=== PATIENT | female | born 1975 | race African-American/Black ===

== ENCOUNTER 2017-05-09 15:01 | Emergency (ER) | payer OTHER, BC ==
--- NOTE | 2017-05-09 15:52 | ER Document Report ---
HPI - HPI Pain Level: 5 - REPRODUCTIVE Reproductive: DENIES: : - DERM Skin Color: Normal Past Medical History - Social History Family History: Reviewed & Not Pertinent Patient has suicidal ideation: No Patient has homicidal ideation: No - Past Medical History Cardiac Medical History: Reports: Hx Congestive Heart Failure, Hx Hypertension Renal/ Medical History: Denies: Hx Peritoneal Dialysis Past Surgical History: Reports: Hx Cardiac Catheterization Vertical Provider Document - INFECTION CONTROL TRAVEL OUTSIDE OF THE [place] IN LAST 30 DAYS: No - RESPIRATORY O2 Sat by Pulse Oximetry: 98 Course - Vital Signs Vital signs: Temp Pulse Resp BP Pulse Ox 98.9 F 94 20 164/92 H 98 05/09/17 15:07 05/09/17 15:07 05/09/17 15:07 05/09/17 15:07 05/09/17 15:07 Discharge - Discharge Clinical Impression: Skin lesion, Skin infection
--- NOTE | 2017-05-09 16:11 | ER Document Report ---
ED Medical Screen (RME) - General Chief Complaint: Arm Pain Stated Complaint: RIGHT ARM PAIN Time Seen by Provider: 05/09/17 15:40 TRAVEL OUTSIDE OF THE [place] IN LAST 30 DAYS: No - HPI Notes: 05/09/17 16:08 Is a 41-year-old female presents the ED complaining of severe right shoulder and arm pain 1 day without any known injury. Patient states that she began feeling discomfort while she was at work yesterday but worsened overnight. Patient states that she is unable to move that arm without extreme pain. Patient states that she has shooting pains from the shoulder down to the forearm without any neck pain. 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 She has tried [id number]-[id number] meds without any relief. Denies any fever, numbness/tingling, headache, chest pain, shortness of breath. - Related Data Allergies/Adverse Reactions: No Known Allergies Allergy (Verified 05/09/17 15:07) Past Medical History - Past Medical History Cardiac Medical History: Reports: Hx Congestive Heart Failure, Hx Hypertension Renal/ Medical History: Denies: Hx Peritoneal Dialysis Past Surgical History: Reports: Hx Cardiac Catheterization Physical Exam - Vital signs Vitals: Temp Pulse Resp BP Pulse Ox 98.9 F 94 20 164/92 H 98 05/09/17 15:05/09/17 15:05/09/17 15:05/09/17 15:05/09/17 15:07 Notes: Rt shoulder/arm: + severe tenderness to light palpation (put the patient into tears and crying). Unable to perform through ROM due to patient resistance. + tenderness to the rt trap mm, shoulder, arm, and forearm. Pulse 2+ b/l. Sensation intact distal. Cap refill <3sec. No cervical tenderness. Vitals are stable. Course - Vital Signs Vital signs: Temp Pulse Resp BP Pulse Ox 98.9 F 94 20 164/92 H 98 05/09/17 15:05/09/17 15:05/09/17 15:05/09/17 15:05/09/17 15:07 Doctor's Discharge - Discharge Clinical Impression: Skin lesion, Skin infection
[2017-05-09] MEDS ORDERED: OXYCODONE HCL IR 5 MG TABLET PO ONE (16:12)
--- NOTE | 2017-05-09 16:22 | ER Document Report ---
HPI - HPI Pain Level: 5 Notes: Pt is a 41-year-old female presents the ED complaining of severe right shoulder and arm pain 1 day without any known injury. Patient states that she began feeling discomfort while she was at work yesterday but worsened overnight. Patient states that she is unable to move that arm without extreme pain. Patient states that she has shooting pains from the shoulder down to the forearm without any neck pain. 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 She has tried yico-igs-qasqrov meds/cream without any relief. Denies any fever, numbness/tingling, headache, chest pain, shortness of breath. No history of sickle cell or exposure to any cats. - ROS Notes: REVIEW OF SYSTEMS: CONSTITUTIONAL : Denies fever, chills, or sweats. Denies recent illness. EENT: Denies eye, ear, throat, or mouth pain or symptoms. Denies nasal or sinus congestion or discharge. Denies throat, tongue, or mouth swelling or difficulty swallowing. CARDIOVASCULAR: Denies chest pain. Denies palpitations or racing or irregular heart beat. Denies ankle edema. RESPIRATORY: Denies cough, cold, or chest congestion. Denies shortness of breath, difficulty breathing, or wheezing. GASTROINTESTINAL: Denies abdominal pain or distention. Denies nausea, vomiting , or diarrhea. Denies blood in vomitus, stools, or per rectum. Denies black, tarry stools. Denies constipation. GENITOURINARY: Denies difficulty urinating, painful urination, burning, frequency, blood in urine, or discharge. MUSCULOSKELETAL: see hpi SKIN: Denies rash, lesions or sores. NEUROLOGICAL: Denies dizziness or lightheadedness. Denies headache. Denies problems with gait or speech. Denies sensory loss, numbness, or tingling. ALL OTHER SYSTEMS REVIEWED AND NEGATIVE. Dictation was performed using [employer] voice recognition software - REPRODUCTIVE Reproductive: DENIES: : - DERM Skin Color: Normal Past Medical History - Social History Smoking Status: Unknown if Ever Smoked Family History: Reviewed & Not Pertinent Patient has suicidal ideation: No Patient has homicidal ideation: No - Past Medical History Cardiac Medical History: Reports: Hx Congestive Heart Failure, Hx Hypertension Renal/ Medical History: Denies: Hx Peritoneal Dialysis Past Surgical History: Reports: Hx Cardiac Catheterization Vertical Provider Document - CONSTITUTIONAL Notes: PHYSICAL EXAMINATION: GENERAL: Well-appearing, well-nourished and in no acute distress. NECK: Normal range of motion, supple without lymphadenopathy. No rigidity/ tenderness. + tenderness to the rt trapezius mm. LUNGS: Breath sounds clear to auscultation bilaterally and equal. No wheezes rales or rhonchi. HEART: Regular rate and rhythm without murmurs, rubs, gallops. Musculoskeletal: LROM to passive/active of the RUE. + tenderness to light palpation and attempt at passive ROM. + tenderness from rt trap mm to the rt forearm. 2+ pulse. sensation intact. No erythema, excessive warmth, deformity , or ecchymosis noted. Extremities: No cyanosis, clubbing, or edema b/l. Peripheral pulses 2+. Capillary refill less than 3 seconds. NEUROLOGICAL: see MSK PSYCH: Normal mood, normal affect. SKIN: Warm, Dry, normal turgor, no rashes or lesions noted. - INFECTION CONTROL TRAVEL OUTSIDE OF THE [place] IN LAST 30 DAYS: No - RESPIRATORY O2 Sat by Pulse Oximetry: 98 Course - Re-evaluation Re-evalutation: 05/09/17 20:10 Dr. [place] also evaluated the rt shoulder: Patient is an afebrile, well-hydrated, 41-year-old female presents to the ED with right shoulder/arm pain suspect possible rotator cuff involvement; although physical exam incomplete due to patient discomfort at this time. X- ray did not show any acute fracture dislocation. Oxycodone was given today which did help offset some of her discomfort. Sling was provided today as well. Low suspicion for any septic joint, systemic infection, or any neurological deficit based on workup today. Patient to be discharged in stable condition. I will send her home with oxycodone, steroid taper, Voltaren gel. Recheck with her PCM to 3 days for further evaluation. Consider consult with orthopedics with ongoing worsening symptoms. Return to the ED with any worsening/concerning symptoms otherwise as reviewed. Patient in agreement. - Vital Signs Vital signs: Temp Pulse Resp BP Pulse Ox 98.9 F 94 20 164/92 H 98 05/09/17 15:05/09/17 15:05/09/17 15:05/09/17 15:05/09/17 15:07 Discharge - Discharge Clinical Impression: Right shoulder pain Qualifiers: Chronicity: acute Qualified Code(s): M25.511 - Pain in right shoulder Condition: Stable Disposition: HOME, SELF-CARE Additional Instructions: Rest, Ice, Compression, Elevation Use sling as directed Tylenol/ibuprofen as needed Take meds as directed Light stretches daily Strength exercises as able Moist heat and massage may help Monitor sugars closely while on prednisone F/u with your PCP in 2-3 days for a recheck Consider consult(s) with Orthopedics for ongoing/worsening symptoms Return to the ED with any worsening pain, swelling, pale limbs, numbness/ tingling, muscle weakness, development of fever, or other concerning symptoms. Prescriptions: Diclofenac Sodium [Voltaren] 4 gm TP QID PRN #100 gel..gm. PRN Reason: Oxycodone HCl [Oxycodone HCl 10 MG Tablet] 1 - 2 tab PO Q6H PRN #15 tablet PRN Reason: PAIN Prednisone [Deltasone 10 mg Tablet] 10 mg PO ASDIR PRN #21 tablet PRN Reason: Referrals: NICK SALMON MD [Primary Care Provider] - Follow up as needed [facility] [Provider Group] - Follow up as needed
--- NOTE | 2017-05-09 16:54 | RADIOLOGY REPORT (SQ) ---
EXAM DESCRIPTION: SHOULDER RIGHT 2 OR MORE VIEWS COMPLETED DATE/TIME: 05/09/2017 4:41 pm REASON FOR STUDY: Rt shoulder pain COMPARISON: None. NUMBER OF VIEWS: Three views. TECHNIQUE: Internal rotation, external rotation, and Y view images acquired of the right shoulder. LIMITATIONS: None. FINDINGS: MINERALIZATION: Normal. BONES: No acute fracture or dislocation. No worrisome bone lesions. JOINTS: No dislocation. Mild degenerative changes involving the AC joint. VISUALIZED LUNGS AND RIBS: No pneumothorax. No rib fracture. SOFT TISSUES: Soft tissue calcification adjacent to the humeral head consistent with calcific tendini tis or calcific bursitis. OTHER: No other significant finding. IMPRESSION: 1. Soft tissue calcification adjacent to the humeral head consistent with calcific tend initis or calcific bursitis. 2. Mild degenerative changes involving the AC joint. TECHNICAL DOCUMENTATION: JOB ID: [id number] [employer]- All Rights Reserved
[2017-05-09 17:39] VITALS: BP 118/83
== END 2017-05-09 17:35 | disposition home or self-care (01) ==
LOC: ER 15:01
DX: M25.511 Pain in right shoulder (principal); M79.601 Pain in right arm; I50.9 Heart failure, unspecified; I11.0 Hypertensive heart disease with heart failure
CPT/HCPCS: 99283

== ENCOUNTER 2017-09-17 09:55 | Emergency (ER) | payer BC ==
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
--- NOTE | 2017-09-17 10:40 | RADIOLOGY REPORT (SQ) ---
EXAM DESCRIPTION: HAND LEFT 3 VIEWS; WRIST LEFT 3 VIEWS COMPLETED DATE/TIME: 09/17/2017 10:27 am REASON FOR STUDY: left hand/wrist pain s/p injury, + swelling COMPARISON: None. FINDINGS: Four views of the left wrist: Scapholunate interval widening. Carpal alignment otherwise looks relatively anatomic. No fracture detected. Three views left hand: Fingers are slightly flexed on the PA view which mildly limits. Normal bone density. No fracture or foreign body, subluxation or dislocation. IMPRESSION: 1. Scapholunate interval widening on wrist radiographs may reflect ligament injury. Car pal alignment otherwise looks intact. 2. No hand fracture, subluxation or dislocation or foreign bod y evident. TECHNICAL DOCUMENTATION: JOB ID: [id number]
[2017-09-17 11:38] VITALS: BP 136/82
== END 2017-09-17 11:38 | disposition home or self-care (01) ==
LOC: ER 09:55
DX: S63.502A Unspecified sprain of left wrist, initial encounter (principal); M79.642 Pain in left hand; M25.532 Pain in left wrist; W22.09XA Striking against other stationary object, initial encounter; Y93.89 Activity, other specified; Y92.818 Other transport vehicle as the place of occurrence of the external cause; M79.89 Other specified soft tissue disorders; I10 Essential (primary) hypertension
CPT/HCPCS: 99283

== ENCOUNTER 2017-09-19 14:06 | Emergency (ER) | payer BC ==
--- NOTE | 2017-09-19 14:27 | RADIOLOGY REPORT (SQ) ---
EXAM DESCRIPTION: CT HEAD WITHOUT COMPLETED DATE/TIME: 09/19/2017 2:19 pm REASON FOR STUDY: STROKE ALERT COMPARISON: None. TECHNIQUE: Axial images acquired through the brain without intravenous contrast. Images reviewed wi th bone, brain and subdural windows. Images stored on PACS. All CT scanners at this facility use dose modulation, iterative reconstruction, and/or weight based d osing when appropriate to reduce radiation dose to as low as reasonably achievable (ALARA). [facility]: Dose Right [facility]: CareDose [facility]: Dose Right [facility]: Teradose 4D [facility]: [employer] Mode RADIATION DOSE: mGy. LIMITATIONS: None. FINDINGS: VENTRICLES: Normal size and contour. CEREBRUM: No masses. No hemorrhage. No midline shift. No evidence for acute infarction. Normal gra y/white matter differentiation. No areas of low density in the white matter. CEREBELLUM: No masses. No hemorrhage. No alteration of density. No evidence for acute infarction. EXTRAAXIAL SPACES: No fluid collections. No masses. ORBITS AND GLOBE: No intra- or extraconal masses. Normal contour of globe without masses. CALVARIUM: No fracture. PARANASAL SINUSES: No fluid or mucosal thickening. SOFT TISSUES: No mass or hematoma. OTHER: No other significant finding. IMPRESSION: NORMAL BRAIN CT WITHOUT CONTRAST. EVIDENCE OF ACUTE STROKE: NO. COMMENT: Pertinent positive or negative findings of the imaging study reported as a CRITICAL EXAM t o ER PROVIDER at14:20 on 09/19/2017. Category of Critical Exam: Stroke alert. Quality ID # [id number]: Final reports with documentation of one or more dose reduction techniques (e.g., Au tomated exposure control, adjustment of the mA and/or kV according to patient size, use of iterative reconstruction technique) TECHNICAL DOCUMENTATION: JOB ID: [id number]- All Rights Reserved
[2017-09-19 14:50] LABS: ABSOLUTE EOSINOPHILS # (AUTO) 0.5 10^3/uL (0.0-0.6); ABSOLUTE LYMPHOCYTES (AUTO) 2.9 10^3/uL (0.5-4.7); ABSOLUTE MONOCYTES (AUTO) 0.9 10^3/uL (0.1-1.4); ABSOLUTE NEUT (AUTO) 7.6 10^3/uL (1.7-8.2); BASOPHILS % (AUTO) 0.1 % (0-2); EOSINOPHILS % (AUTO) 4.3 % (0-6); LYMPHOCYTES % (AUTO) 24.3 % (13-45); MEAN CORPUSCULAR HEMOGLOBIN 27.8 pg (27.0-33.4); MEAN CORPUSCULAR HGB CONC 33.3 g/dL (32.0-36.0); MEAN CORPUSCULAR VOLUME 84 fl (80-97); MONOCYTES % (AUTO) 7.6 % (3-13); RED BLOOD COUNT 4.67 10^6/uL (3.72-5.28); SEGMENTED NEUTROPHILS % (AUTO) 63.7 % (42-78); WHITE BLOOD COUNT 11.9 10^3/uL (4.0-10.5)
[2017-09-19] MEDS ORDERED: ASPIRIN 81 MG TABLET, CHEWABLE PO ONE (14:52)
[2017-09-19 14:55] LABS: PARTIAL THROMBOPLASTIN TIME 27.3 SEC (23.5-35.8); PROTHROMBIN TIME 12.8 SEC (11.4-15.4)
--- NOTE | 2017-09-19 15:05 | RADIOLOGY REPORT (SQ) ---
EXAM DESCRIPTION: CHEST SINGLE VIEW COMPLETED DATE/TIME: 09/19/2017 2:54 pm REASON FOR STUDY: AMS COMPARISON: 10/25/2016 EXAM PARAMETERS: NUMBER OF VIEWS: One view. TECHNIQUE: Single frontal radiographic view of the chest acquired. RADIATION DOSE: NA LIMITATIONS: None. FINDINGS: LUNGS AND PLEURA: No opacities, masses or pneumothorax. No pleural effusion. Low lung vol umes. MEDIASTINUM AND HILAR STRUCTURES: No masses. Contour normal. HEART AND VASCULAR STRUCTURES: Enlarged cardiac silhouette. BONES: No acute findings. HARDWARE: None in the chest. OTHER: No other significant finding. IMPRESSION: Cardiac enlargement with no failure. Cardiac enlargement is accentuated by low lung vol umes. TECHNICAL DOCUMENTATION: JOB ID: [id number] [employer]- All Rights Reserved
[2017-09-19 15:14] LABS: ALANINE AMINOTRANSFERASE 24 U/L (9-52); ALBUMIN 3.4 g/dL (3.5-5.0); ALKALINE PHOSPHATASE 78 U/L (38-126); ANION GAP 9 (5-19); ASPARTATE AMINO TRANSFERASE 17 U/L (14-36); BILIRUBIN,DIRECT 0.3 mg/dL (0.0-0.4); BILIRUBIN,TOTAL 0.3 mg/dL (0.2-1.3); BLOOD UREA NITROGEN 15 mg/dL (7-20); CALCIUM 9.5 mg/dL (8.4-10.2); CARBON DIOXIDE 27 mmol/L (22-30); CHLORIDE 104 mmol/L (98-107); CREATINE KINASE 160 U/L (30-135); CREATININE RESULT 1.14 mg/dL (0.52-1.25); GLUCOSE 96 mg/dL (75-110); LIPASE 282.9 U/L (23-300); POTASSIUM 3.7 mmol/L (3.6-5.0); SODIUM 139.7 mmol/L (137-145); TOTAL PROTEIN 6.7 g/dL (6.3-8.2)
[2017-09-19 15:15] LABS: ALCOHOL < 10 mg/dL (NONE DETECTED)
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
[2017-09-19 15:32] LABS: TROPONIN I < 0.012 ng/mL
[2017-09-19 16:15] LABS: APPEARANCE,URINE SLIGHTLY-CLOUDY; BILIRUBIN,URINE NEGATIVE (NEGATIVE); GLUCOSE, URINE NEGATIVE (NEGATIVE); KETONES,URINE NEGATIVE (NEGATIVE); LEUKOCYTE ESTERASE,URINE NEGATIVE (NEGATIVE); NITRITE,URINE NEGATIVE (NEGATIVE); PROTEIN,URINE NEGATIVE (NEGATIVE); URINE SPECIFIC GRAVITY 1.008; UROBILINOGEN,URINE NEGATIVE mg/dL (<2.0)
[2017-09-19 16:30] LABS: URINE BARBITURATES SCREEN NEGATIVE; URINE METHADONE SCREEN NEGATIVE; URINE OPIATES LOW NEGATIVE; URINE PHENCYCLIDINE SCREEN NEGATIVE
[2017-09-19] MEDS ORDERED: NAPROXEN 250 MG TABLET PO ONE (18:26)
[2017-09-19 19:09] VITALS: BP 148/84
--- NOTE | 2017-09-20 09:33 | EKG REPORT ---
SEVERITY:- ABNORMAL ECG - SINUS RHYTHM FIRST DEGREE AV BLOCK ABNRM R PROG, CONSIDER ASMI OR LEAD PLACEMENT : Confirmed by: Vera Yu 20-Sep-2017 09:33:18
== END 2017-09-19 19:17 | disposition home or self-care (01) ==
LOC: ER 14:06
DX: E11.649 Type 2 diabetes mellitus with hypoglycemia without coma (principal); Z79.84 Long term (current) use of oral hypoglycemic drugs; R47.81 Slurred speech; I10 Essential (primary) hypertension; S20.219A Contusion of unspecified front wall of thorax, initial encounter; R07.89 Other chest pain; V49.9XXA Car occupant (driver) (passenger) injured in unspecified traffic accident, initial encounter; I51.7 Cardiomegaly
CPT/HCPCS: 36415; 70450; 71010; 80053; 80307; 81001; 82550; 82962; 83690; 83880; 84484; 84703; 85025; 85610; 85730; 93005; 93010; 99285

== ENCOUNTER 2018-02-05 11:36 | Emergency (ER) | payer BC ==
[2018-02-05] MEDS ORDERED: OXYCODONE-ACETAMINOPHEN 5-325 MG TABLET PO ONE ×2 (12:09→17:47)
--- NOTE | 2018-02-05 12:15 | ER Document Report ---
ED Medical Screen (RME) - General Chief Complaint: Leg Pain Stated Complaint: LEG PAIN Time Seen by Provider: 02/05/18 12:03 Notes: 42-year-old female patient had a right lateral leg abscess incision and drainage at [facility] on 01/30/2018. She states for the first 2 days it was much better. She was packing the abscess cavity as instructed and taking clindamycin. She had a culture done which grew a non-MRSA staph aureus sensitive to every antibiotic that it was tested against. Now she complains of a 2 day history of pain getting progressively worse with some swelling. She was taking Tylenol, yesterday took 2 or 3 doses of Motrin 800 mg and took 1 dose this morning without any relief. She has an abscess cavity where the I&D was done, it is not draining. It is very tender and swelling in the tissues surrounding this abscess cavity. I have greeted and performed a rapid initial assessment of this patient. A comprehensive ED assessment and evaluation of the patient, analysis of test results and completion of the medical decision making process will be conducted by additional ED providers. TRAVEL OUTSIDE OF THE [place] IN LAST 30 DAYS: No - Related Data Allergies/Adverse Reactions: No Known Allergies Allergy (Verified 09/19/17 17:22) Past Medical History - Social History Frequency of alcohol use: None Drug Abuse: None - Past Medical History Cardiac Medical History: Reports: Hx Congestive Heart Failure, Hx Heart Attack, Hx Hypertension Endocrine Medical History: Reports: Hx Diabetes Mellitus Type 2 Renal/ Medical History: Denies: Hx Peritoneal Dialysis Past Surgical History: Reports: Hx Cardiac Catheterization Physical Exam - Vital signs Vitals: Temp Pulse Resp BP Pulse Ox 98.1 F 81 20 129/80 H 97 02/05/18 11:57 02/05/18 11:57 02/05/18 11:57 02/05/18 11:57 02/05/18 11:57 Course - Vital Signs Vital signs: Temp Pulse Resp BP Pulse Ox 98.1 F 81 20 129/80 H 97 02/05/18 11:57 02/05/18 11:57 02/05/18 11:57 02/05/18 11:57 02/05/18 11:57
[2018-02-05 13:02] LABS: ABSOLUTE EOSINOPHILS # (AUTO) 0.6 10^3/uL (0.0-0.6); ABSOLUTE LYMPHOCYTES (AUTO) 3.2 10^3/uL (0.5-4.7); ABSOLUTE MONOCYTES (AUTO) 0.9 10^3/uL (0.1-1.4); BASOPHILS % (AUTO) 0.1 % (0-2); EOSINOPHILS % (AUTO) 4.8 % (0-6); HEMATOCRIT 42.2 % (36.0-47.0); LYMPHOCYTES % (AUTO) 25.1 % (13-45); MEAN CORPUSCULAR HEMOGLOBIN 27.4 pg (27.0-33.4); MEAN CORPUSCULAR HGB CONC 33.1 g/dL (32.0-36.0); MEAN CORPUSCULAR VOLUME 83 fl (80-97); MONOCYTES % (AUTO) 6.8 % (3-13); PLATELET COUNT 404 10^3/uL (150-450); RED CELL DISTRIBUTION WIDTH 14.6 % (11.5-14.0); SEGMENTED NEUTROPHILS % (AUTO) 63.2 % (42-78); TOTAL CELLS COUNTED % (AUTO) 100 %; WHITE BLOOD COUNT 12.7 10^3/uL (4.0-10.5)
[2018-02-05 13:16] LABS: ALANINE AMINOTRANSFERASE 32 U/L (9-52); ALKALINE PHOSPHATASE 63 U/L (38-126); ANION GAP 10 (5-19); ASPARTATE AMINO TRANSFERASE 28 U/L (14-36); BILIRUBIN,DIRECT 0.2 mg/dL (0.0-0.4); BILIRUBIN,TOTAL 0.2 mg/dL (0.2-1.3); BLOOD UREA NITROGEN 17 mg/dL (7-20); CALCIUM 10.3 mg/dL (8.4-10.2); CARBON DIOXIDE 32 mmol/L (22-30); CHLORIDE 96 mmol/L (98-107); GLUCOSE 78 mg/dL (75-110); POTASSIUM 3.6 mmol/L (3.6-5.0); TOTAL PROTEIN 7.2 g/dL (6.3-8.2)
--- NOTE | 2018-02-05 13:38 | RADIOLOGY REPORT (SQ) ---
EXAM DESCRIPTION: U/S EXTREMITY NONVASCULAR LTD COMPLETED DATE/TIME: 02/05/2018 1:21 pm REASON FOR STUDY: R leg, pain swelling after abscess I D COMPARISON: None. TECHNIQUE: Dynamic and static grayscale images acquired of the localized site of clinical concern an d recorded on PACS. Additional selected color Doppler and spectral images recorded. SITE OF CONCERN: Right calf LIMITATIONS: None. FINDINGS: SKIN AND SUBCUTANEOUS TISSUES: Extensive edema. No fluid collection. No abscess. DEEP SOFT TISSUES/MUSCLES: Edema without abscess. VASCULAR: No increased or decreased vascularity. No occlusions. OTHER: No other significant finding. IMPRESSION: Extensive superficial and deep edema without evidence for fluid collection or abscess. TECHNICAL DOCUMENTATION: JOB ID: [id number] [employer]- All Rights Reserved Reading location - IP/workstation name: [email or web address]
[2018-02-05] MEDS ORDERED: VANCOMYCIN HCL INJ 1000 MG VIAL IV ONE (14:12)
[2018-02-05] MEDS ORDERED: FENTANYL CITRATE INJ/PF 100 MCG/2 ML AMPUL IV ONE (14:15)
[2018-02-05] MEDS ORDERED: MIDAZOLAM 2 MG/2 ML INJ IV ONE (14:15)
--- NOTE | 2018-02-05 15:02 | ER Document Report ---
ED General - General Chief Complaint: Leg Pain Stated Complaint: LEG PAIN Time Seen by Provider: 02/05/18 12:03 Mode of Arrival: Ambulatory Information source: Patient Notes: 42-year-old female presents with complaints of right calf swelling pain of 2 3 week duration. Patient notes symptoms have gotten better after it was incised and drained approximately 6 days ago and was feeling well for about 3 days over the past 3 days now symptoms have since worsened TRAVEL OUTSIDE OF THE [place] IN LAST 30 DAYS: No - HPI Onset: Other - 2-3 days ago Onset/Duration: Persistent - Related Data Allergies/Adverse Reactions: No Known Allergies Allergy (Verified 09/19/17 17:22) Past Medical History - Social History Smoking Status: Never Smoker Cigarette use (# per day): No Chew tobacco use (# tins/day): No Smoking Education Provided: No Frequency of alcohol use: None Drug Abuse: None Family History: Reviewed & Not Pertinent Patient has suicidal ideation: No Patient has homicidal ideation: No - Past Medical History Cardiac Medical History: Reports: Hx Congestive Heart Failure, Hx Heart Attack, Hx Hypertension Endocrine Medical History: Reports: Hx Diabetes Mellitus Type 2 Renal/ Medical History: Denies: Hx Peritoneal Dialysis Past Surgical History: Reports: Hx Cardiac Catheterization Review of Systems - Review of Systems Notes: REVIEW OF SYSTEMS: CONSTITUTIONAL : Denies fever, chills, or sweats. Denies recent illness. EENT: Denies eye, ear, throat, or mouth pain or symptoms. Denies nasal or sinus congestion or discharge. Denies throat, tongue, or mouth swelling or difficulty swallowing. CARDIOVASCULAR: Denies chest pain. Denies palpitations or racing or irregular heart beat. Denies ankle edema. RESPIRATORY: Denies cough, cold, or chest congestion. Denies shortness of breath, difficulty breathing, or wheezing. GASTROINTESTINAL: Denies abdominal pain or distention. Denies nausea, vomiting , or diarrhea. Denies blood in vomitus, stools, or per rectum. Denies black, tarry stools. Denies constipation. GENITOURINARY: Denies difficulty urinating, painful urination, burning, frequency, blood in urine, or discharge. FEMALE GENITOURINARY: Denies vaginal bleeding, heavy or abnormal periods, irregular periods. Denies vaginal discharge or odor. MUSCULOSKELETAL: Denies back or neck pain or stiffness. D right calf swelling SKIN: Admits to right calf pain HEMATOLOGIC : Denies easy bruising or bleeding. LYMPHATIC: Denies swollen, enlarged glands. NEUROLOGICAL: Denies confusion or altered mental status. Denies passing out or loss of consciousness. Denies dizziness or lightheadedness. Denies headache. Denies weakness or paralysis or loss of use of either side. Denies problems with gait or speech. Denies sensory loss, numbness, or tingling. Denies seizures. PSYCHIATRIC: Denies anxiety or stress. Denies depression, suicidal ideation, or homicidal ideation. ALL OTHER SYSTEMS REVIEWED AND NEGATIVE. PHYSICAL EXAMINATION: GENERAL: Well-appearing, well-nourished and in no acute distress. HEAD: Atraumatic, normocephalic. EYES: Pupils equal round and reactive to light, extraocular movements intact, conjunctiva are normal. ENT: Nares patent, oropharynx clear without exudates. Moist mucous membranes. NECK: Normal range of motion, supple without lymphadenopathy LUNGS: Breath sounds clear to auscultation bilaterally and equal. No wheezes rales or rhonchi. HEART: Regular rate and rhythm without murmurs ABDOMEN: Soft, nontender, nondistended abdomen. No guarding, no rebound. No masses appreciated. Female : deferred Musculoskeletal: Significant tenderness of the right calf, there is surgical debridement noted of the calf no erythema NEUROLOGICAL: Cranial nerves grossly intact. Normal speech, normal gait. Normal sensory, motor exams PSYCH: Normal mood, normal affect. SKIN: Warm, Dry, normal turgor, no rashes or lesions noted. Dictation was performed using [employer] voice recognition software Physical Exam - Vital signs Vitals: Temp Pulse Resp BP Pulse Ox 98.1 F 81 20 129/80 H 97 02/05/18 11:57 02/05/18 11:57 02/05/18 11:57 02/05/18 11:57 02/05/18 11:57 Course - Re-evaluation Re-evalutation: Patient's ultrasound is most consistent with edema with possible infectious process, Dr. Humphries would like to I&D the wound 02/05/18 15:01 Dr humphries offers admission but pt has to go to another hospital in the morning for her son. denies any other concers, Dr humphries will cut at bedside 02/05/18 16:23 Patient tolerated procedure well will be continued on her home antibiotics and given follow-up with wound care clinic After performing a Medical Screening Examination, I estimate there is LOW risk for OPEN FRACTURE, COMPARTMENT SYNDROME, TENDON RUPTURE, ACUTE NEUROVASCULAR INJURY, or RETAINED FOREIGN BODY, thus I consider the discharge disposition reasonable. Also, there is no evidence or peritonitis, sepsis, or toxicity. I have reevaluated this patient multiple times and no significant life threatening changes are noted. The patient and I have discussed the diagnosis and risks, and we agree with discharging home with close follow-up with the understanding that symptoms and presentations can change. We also discussed returning to the Emergency Department immediately if new or worsening symptoms occur. We have discussed the symptoms which are most concerning (e.g., changing or worsening pain, fever, numbness, weakness, cool or painful digits) that necessitate immediate return. - Vital Signs Vital signs: Temp Pulse Resp BP Pulse Ox 98.1 F 75 19 104/62 100 02/05/18 11:57 02/05/18 15:40 02/05/18 15:51 02/05/18 15:51 02/05/18 15:51 - Laboratory Result Diagrams: 02/05/18 12:18 02/05/18 12:18 Laboratory results interpreted by me: 02/05/18 02/05/18 12:18 12:18 WBC 12.7 H RDW 14.6 H Chloride 96 L Carbon Dioxide 32 H Calcium 10.3 H - Diagnostic Test Radiology reviewed: Image reviewed - Significant edema noted, Reports reviewed Discharge - Discharge Clinical Impression: Leg wound, right Qualifiers: Encounter type: initial encounter Qualified Code(s): S81.801A - Unspecified open wound, right lower leg, initial encounter Condition: Stable Disposition: HOME, SELF-CARE Additional Instructions: Please follow-up with wound care clinic for further evaluation care return immediately if there are any other concerns I wanted to admit you today but I understand you have other family issues return immediately for any other concerns Referrals: NICK SALMON MD [Primary Care Provider] - Follow up as needed SURGICALIST,SURGICAL MD [ACTIVE STAFF] - Follow up as needed Wound Care [Provider Group] - Follow up as needed
[2018-02-05] MEDS ORDERED: LIDOCAINE 1% INJ-PF (10 MG/ML) 30 ML SDV ONE (15:23)
--- NOTE | 2018-02-05 18:19 | HISTORY AND PHYSICAL E ---
History and Physical NAME: KESHA STROUD : 1975 AGE: 42Y ADMITTED: 02/05/2018 ROOM: PREOPERATIVE DIAGNOSES: 1. History of right leg debridement. 2. Cellulitis, right lower extremity. POSTOPERATIVE DIAGNOSES: 1. History of right leg debridement. 2. Cellulitis, right lower extremity. 3. Nonviable tissue, right lower extremity wound. PROCEDURE: Excisional skin, subcutaneous tissue, and superficial fascia right lower extremity using knife blade, approximately 3 x 2 x 1 cm tissue removed. SURGEON: Lamont Lowe MD ANESTHESIA: Conscious sedation and local anesthesia. COMPLICATIONS: None. ESTIMATED BLOOD LOSS: Minimal. DRAINS: None. SUMMARY OF PROCEDURE: The patient's right lower extremity was exposed with the patient in the left lateral decubitus position. Surgical plan and surgical timeout were discussed. The patient underwent conscious sedation per protocol in the emergency department with appropriate monitoring devices attached to the patient and adequate nursing supervision. The right lower extremity lateral transversely oriented wound was approximately 1.5 x 3 cm in diameter. It was prepped and draped in a sterile fashion. Skin and subcutaneous tissue was anesthetized with 1% lidocaine plain. A larger ellipse of skin and subcutaneous tissue was made with a number 10 blade in a transverse fashion removing the perimeter of the previous wound. Underlying pockets of mild edema were broken up with index finger both proximally and distally along lateral calf. Small fragments of residual suture likely from previous closure were removed. The wound was irrigated with saline, lidocaine, and then packed with a small piece of gauze. The wound covered with 4 x 4's, Antonio wrap, and Kerlix. The patient tolerated the procedure well. RECOMMENDATIONS: 1. The patient needs intense re-education on leg elevation. 2. The patient to start wet-to-dry dressings as she had prior today's visit with a small portion of gauze. 3. Await wound culture results; continue empiric IV and p.o. antibiotic therapy with *------* gram-positive coverage. 4. The patient can return to [facility] for followup of wound management. DICTATING PHYSICIAN: LAMONT LOWE M.D. [id number] PHY#: [id number] ID: [id number] JOB#: [id number] ACCT: [id number] cc:NICK SALMON M.D. >
[2018-02-05 18:35] VITALS: BP 106/68
== END 2018-02-05 19:05 | disposition home or self-care (01) ==
LOC: ER 11:36
PROC: 0J9N0ZZ Drainage of Right Lower Leg Subcutaneous Tissue and Fascia, Open Approach (ICD-10-PCS; principal; 2018-02-05)
DX: L03.115 Cellulitis of right lower limb (principal); M79.604 Pain in right leg; I50.9 Heart failure, unspecified; I10 Essential (primary) hypertension; E11.9 Type 2 diabetes mellitus without complications; I25.2 Old myocardial infarction
CPT/HCPCS: 99284; 99152; 96365; 36415; 87070; 87205; 85025; 87077; 80053; 87186; 76882; 10060; J2250; J3010; J3490; J3370

== ENCOUNTER 2018-08-29 14:42 | Emergency (ER) | payer BC ==
[2018-08-29] MEDS ORDERED: ASPIRIN 81 MG TABLET, CHEWABLE PO ONE (15:21)
[2018-08-29] MEDS ORDERED: HYDROMORPHONE HCL INJ/PF 2 MG/ML AMPULE IV ONE (15:48)
[2018-08-29] MEDS ORDERED: ONDANSETRON 4 MG TAB.RAPDIS PO ONE (15:48)
--- NOTE | 2018-08-29 15:51 | RADIOLOGY REPORT (SQ) ---
EXAM DESCRIPTION: CHEST SINGLE VIEW COMPLETED DATE/TIME: 08/29/2018 3:43 pm REASON FOR STUDY: chest pain, sob COMPARISON: 10/25/2016. EXAM PARAMETERS: NUMBER OF VIEWS: One view. TECHNIQUE: Single frontal radiographic view of the chest acquired. RADIATION DOSE: NA LIMITATIONS: None. FINDINGS: LUNGS AND PLEURA: No opacities, masses or pneumothorax. No pleural effusion. MEDIASTINUM AND HILAR STRUCTURES: No masses. Contour normal. HEART AND VASCULAR STRUCTURES: Heart normal in size. Normal vasculature. BONES: No acute findings. HARDWARE: None in the chest. OTHER: No other significant finding. IMPRESSION: NO ACUTE RADIOGRAPHIC FINDING IN THE CHEST. TECHNICAL DOCUMENTATION: JOB ID: [id number] [employer]- All Rights Reserved Reading location - IP/workstation name: [email or web address]
--- NOTE | 2018-08-29 15:52 | ER Document Report ---
ED General - General Chief Complaint: Chest Pain Stated Complaint: CHEST PAIN, DIFFICULTY BREATHING Time Seen by Provider: 08/29/18 15:21 Mode of Arrival: Ambulatory Information source: Patient Notes: 43-year-old morbidly obese diabetic hypertensive with a history of CHF, OH, and negative cardiac catheterizations patient of Dr. Tellez who woke up today with right-sided chest pain that radiates through to her back got worse while she was walking at [employer] it causes shortness of breath. No history of PE or use of hormones. No leg pain. She is rocking in bed because she has spasms of pain and then she starts to hyperventilate. No surgical hx. No vomiting or diarrhea. Vital signs are stable her EKG is normal sinus rhythm with no acute change (dr cabrera read it ) and chest x-ray has been done. TRAVEL OUTSIDE OF THE [place] IN LAST 30 DAYS: No - Related Data Allergies/Adverse Reactions: No Known Allergies Allergy (Verified 08/29/18 14:45) Past Medical History - General Information source: Patient - Social History Smoking Status: Never Smoker Chew tobacco use (# tins/day): No Frequency of alcohol use: None Drug Abuse: None Lives with: Family Family History: Reviewed & Not Pertinent Patient has suicidal ideation: No Patient has homicidal ideation: No - Past Medical History Cardiac Medical History: Reports: Hx Congestive Heart Failure, Hx Heart Attack, Hx Hypertension Endocrine Medical History: Reports: Hx Diabetes Mellitus Type 2 Renal/ Medical History: Denies: Hx Peritoneal Dialysis Past Surgical History: Reports: Hx Cardiac Catheterization Review of Systems - Review of Systems Constitutional: No symptoms reported EENT: No symptoms reported Cardiovascular: See HPI Respiratory: See HPI Gastrointestinal: No symptoms reported Genitourinary: No symptoms reported Female Genitourinary: No symptoms reported Musculoskeletal: No symptoms reported Skin: No symptoms reported Hematologic/Lymphatic: No symptoms reported Neurological/Psychological: No symptoms reported Physical Exam - Vital signs Vitals: Temp Pulse Resp BP Pulse Ox 98.3 F 71 20 149/86 H 100 08/29/18 15:09 08/29/18 15:09 08/29/18 15:09 08/29/18 15:09 08/29/18 15:09 Interpretation: Normal - General General appearance: Appears well, Alert - HEENT Head: Normocephalic, Atraumatic Eyes: Normal Conjunctiva: Normal Pupils: PERRL Mucous membranes: Normal Neck: Supple - Respiratory Respiratory status: No respiratory distress Chest status: Nontender Breath sounds: Normal Chest palpation: Normal - Cardiovascular Rhythm: Regular Heart sounds: Normal auscultation Murmur: No - Abdominal Inspection: Normal Distension: No distension Bowel sounds: Normal Tenderness: Tender - epigastric and RUQ. No: Guarding, Rebound Organomegaly: No organomegaly. No: Hepatomegaly, Splenomegaly - Back Back: Normal, Tender - posterior mid thoracic back to light touch (dramatic pain response) - Extremities General upper extremity: Normal inspection, Nontender, Normal color, Normal ROM , Normal temperature General lower extremity: Normal inspection, Nontender, Normal color, Normal ROM , Normal temperature, Normal weight bearing. No: Tamara's sign - Neurological Neuro grossly intact: Yes Cognition: Normal Orientation: AAOx4 Starla Coma Scale Eye Opening: Spontaneous Dennis Coma Scale Verbal: Oriented Starla Coma Scale Motor: Obeys Commands Dennis Coma Scale Total: 15 Speech: Normal Motor strength normal: LUE, RUE, LLE, RLE Sensory: Normal - Psychological Associated symptoms: Normal affect, Normal mood - Skin Skin Temperature: Warm Skin Moisture: Dry Skin Color: Normal Skin irregularity: negative: Rash Course - Re-evaluation Re-evalutation: 08/29/18 16:59 Chest x-ray is negative, EKG shows normal sinus rhythm at a rate of [address] Cabrera is evaluated the connolly EKG the QTC is 465 and the QT interval is 408 CBC shows a white count of 12.4 with no segmental shift, lipase is normal and chemistry is normal, troponin is less then 0.012 urinalysis is negative. 08/29/18 18:[address] paula, get CTA to rule out PE. pt has been resting comfortable with stable vital signs. the US shows fatty liver only. I have discussed this with the pt. 08/29/18 19:36 Care has been transferred to Anali Gomez nurse practitioner the bedside. If the CTA is negative for PE, she will be sending her home with a order for an outpatient HIDA scan with ejection fraction. The patient is talking with 4 5 over family members in the room the vital signs are stable she is not tachypneic or tachycardic or hypoxic and she has not been since she has been here. - Vital Signs Vital signs: Temp Pulse Resp BP Pulse Ox 98.3 F 71 10 L 154/98 H 97 08/29/18 15:09 08/29/18 15:09 08/29/18 19:00 08/29/18 19:00 08/29/18 19:01 - Laboratory Result Diagrams: 08/29/18 15:53 08/29/18 15:53 Laboratory results interpreted by me: 08/29/18 08/29/18 15:53 15:53 WBC 12.4 H RDW 14.3 H Absolute Neutrophils 8.3 H Est GFR (Non-Af Amer) 56 L Creatine Kinase 268 H Discharge - Discharge Clinical Impression: Right-sided chest pain, Shortness of breath, Upper abdominal pain, thoracic back tenderness Condition: Good Disposition: HOME, SELF-CARE Instructions: Abdominal Pain ([facility]), Chest Pain of Unclear Cause ([facility]) Additional Instructions: See Dr. Graham tomorrow Outpatient form is been given for you for a outpatient HIDA scan with ejection fraction to see if this epigastric and right upper quadrant pain is due to a nonfunctioning gallbladder Return to the emergency room for any worsening of the symptoms Forms: Follow-Up Radiology Testing Referrals: NICK GRAHAM MD [Primary Care Provider] - Follow up tomorrow
[2018-08-29 15:59] LABS: ABSOLUTE BASOPHILS # (AUTO) 0.1 10^3/uL (0.0-0.2); ABSOLUTE EOSINOPHILS # (AUTO) 0.3 10^3/uL (0.0-0.6); ABSOLUTE LYMPHOCYTES (AUTO) 3.1 10^3/uL (0.5-4.7); ABSOLUTE MONOCYTES (AUTO) 0.7 10^3/uL (0.1-1.4); ABSOLUTE NEUT (AUTO) 8.3 10^3/uL (1.7-8.2); BASOPHILS % (AUTO) 0.8 % (0-2); EOSINOPHILS % (AUTO) 2.2 % (0-6); HEMATOCRIT 40.5 % (36.0-47.0); HEMOGLOBIN 13.6 g/dL (12.0-15.5); LYMPHOCYTES % (AUTO) 24.5 % (13-45); MEAN CORPUSCULAR HEMOGLOBIN 28.2 pg (27.0-33.4); MEAN CORPUSCULAR HGB CONC 33.6 g/dL (32.0-36.0); MEAN CORPUSCULAR VOLUME 84 fl (80-97); MONOCYTES % (AUTO) 5.5 % (3-13); PLATELET COUNT 322 10^3/uL (150-450); RED BLOOD COUNT 4.82 10^6/uL (3.72-5.28); RED CELL DISTRIBUTION WIDTH 14.3 % (11.5-14.0); TOTAL CELLS COUNTED % (AUTO) 100 %; WHITE BLOOD COUNT 12.4 10^3/uL (4.0-10.5)
[2018-08-29 16:14] LABS: ALANINE AMINOTRANSFERASE 21 U/L (9-52); ALBUMIN 3.9 g/dL (3.5-5.0); ALKALINE PHOSPHATASE 67 U/L (38-126); ANION GAP 9 (5-19); ASPARTATE AMINO TRANSFERASE 29 U/L (14-36); BILIRUBIN,DIRECT 0.1 mg/dL (0.0-0.4); BILIRUBIN,TOTAL 0.5 mg/dL (0.2-1.3); BLOOD UREA NITROGEN 16 mg/dL (7-20); CALCIUM 10.1 mg/dL (8.4-10.2); CARBON DIOXIDE 25 mmol/L (22-30); CHLORIDE 103 mmol/L (98-107); CREATINE KINASE 268 U/L (30-135); GLUCOSE 80 mg/dL (75-110); LIPASE 153.4 U/L (23-300); POTASSIUM 3.7 mmol/L (3.6-5.0); SODIUM 137.3 mmol/L (137-145); TOTAL PROTEIN 7.5 g/dL (6.3-8.2)
[2018-08-29 16:22] LABS: APPEARANCE,URINE CLEAR; BILIRUBIN,URINE NEGATIVE (NEGATIVE); COLOR,URINE STRAW; GLUCOSE, URINE NEGATIVE (NEGATIVE); KETONES,URINE NEGATIVE (NEGATIVE); LEUKOCYTE ESTERASE,URINE NEGATIVE (NEGATIVE); NITRITE,URINE NEGATIVE (NEGATIVE); PROTEIN,URINE NEGATIVE (NEGATIVE); UROBILINOGEN,URINE NEGATIVE mg/dL (<2.0)
[2018-08-29 16:26] LABS: CREATINE KINASE MB 0.69 ng/mL (<4.55)
[2018-08-29 16:30] LABS: TROPONIN I < 0.012 ng/mL
--- NOTE | 2018-08-29 18:06 | RADIOLOGY REPORT (SQ) ---
EXAM DESCRIPTION: U/S ABDOMEN LIMITED W/O DOP COMPLETED DATE/TIME: 08/29/2018 4:37 pm REASON FOR STUDY: epigastric ruq abd pain radiates to back COMPARISON: None. TECHNIQUE: Dynamic and static grayscale images acquired of the abdomen and recorded on PACS. Tonyo suzanne selected color Doppler and spectral images recorded. LIMITATIONS: None. FINDINGS: PANCREAS: No masses. Visualized pancreatic duct normal caliber. LIVER: There is fatty infiltration of the liver. The liver is measured 20.7 cm. No focal masses. LIVER VASCULATURE: Normal directional flow of the main portal vein and hepatic veins. GALLBLADDER: No stones. Normal wall thickness. No pericholecystic fluid. ULTRASOUND-DETECTED KNIGHT'S SIGN: Negative. INTRAHEPATIC DUCTS AND COMMON DUCT: CBD and intrahepatic ducts normal caliber. No filling defects. AORTA: Obscured by overlying bowel gas. RIGHT KIDNEY: Normal size. Normal echogenicity. No solid or suspicious masses. No hydronephrosis. No calcifications. PERITONEAL AND RIGHT PLEURAL SPACE: No ascites or effusions. OTHER: No other significant findings. IMPRESSION: Fatty infiltrated liver. Mild hepatomegaly. TECHNICAL DOCUMENTATION: JOB ID: [id number] [employer]- All Rights Reserved Reading location - IP/workstation name: [email or web address]
[2018-08-29 19:12] VITALS: BP 154/98
--- NOTE | 2018-08-29 20:23 | RADIOLOGY REPORT (SQ) ---
EXAM DESCRIPTION: CTA CHEST COMPLETED DATE/TIME: 08/29/2018 8:09 pm REASON FOR STUDY: sob right sided chest pain COMPARISON: None. TECHNIQUE: CT scan of the chest performed using helical scanning technique with dynamic intravenous contrast injection. Images reviewed with lung, soft tissue and bone windows. Reconstructed coronal and sagittal MPR images reviewed. Additional 3 dimensional post-processing performed to develop Maximal Intensity Projection images (CO P). All images stored on PACS. All CT scanners at this facility use dose modulation, iterative reconstruction, and/or weight based d osing when appropriate to reduce radiation dose to as low as reasonably achievable (ALARA). [facility]: Dose Right [facility]: CareDose [facility]: Dose Right [facility]: Teradose 4D [facility]: Melophone CONTRAST TYPE AND DOSE: contrast/concentration: Isovue 350.00 mg/ml; Total Contrast Delivered: 80.0 ml; Total Saline Delivered: 70.0 ml Contrast bolus optimized for the pulmonary arteries. Not diagnostic for the aorta. RENAL FUNCTION: BUN 16 creatinine 1.1 RADIATION DOSE: CT Rad equipment meets quality standard of care and radiation dose reduction techniq ues were employed. CTDIvol: 46.9 - 51.9 mGy. DLP: 2004 mGy-cm. . LIMITATIONS: None. FINDINGS: LUNGS AND PLEURA: No masses, infiltrates, or pneumothorax. No pleural effusions or pleura l calcifications. AORTA AND GREAT VESSELS: No aneurysm. Contrast bolus not optimized for the aorta. HEART: No pericardial effusion. No significant coronary artery calcifications. PULMONARY ARTERIES: No emboli visualized in the main pulmonary arteries or the segmental branches. HILAR AND MEDIASTINAL STRUCTURES: No identified masses or abnormal nodes. HARDWARE: None in the chest. UPPER ABDOMEN: No significant findings. Limited exam. THYROID AND OTHER SOFT TISSUES: No masses. No adenopathy. BONES: No acute or significant finding. 3D MIPS: Confirm above findings. OTHER: No other significant finding. IMPRESSION: NORMAL CTA OF THE CHEST. NO PULMONARY EMBOLI. COMMENT: Quality ID # [id number]: Final reports with documentation of one or more dose reduction techniques (e.g., Automated exposure control, adjustment of the mA and/or kV according to patient size, use of iterative reconstruction technique) TECHNICAL DOCUMENTATION: JOB ID: [id number] [employer]- All Rights Reserved Reading location - IP/workstation name: [email or web address]
--- NOTE | 2018-08-29 21:00 | EKG REPORT ---
SEVERITY:- OTHERWISE NORMAL ECG - SINUS RHYTHM BORDERLINE LEFT AXIS DEVIATION : Confirmed by: Vera Yu 29-Aug-2018 20:59:37
== END 2018-08-29 21:14 | disposition home or self-care (01) ==
LOC: ER 14:42
DX: R07.9 Chest pain, unspecified (principal); R06.02 Shortness of breath; R29.898 Other symptoms and signs involving the musculoskeletal system; K76.0 Fatty (change of) liver, not elsewhere classified; R10.10 Upper abdominal pain, unspecified; R10.811 Right upper quadrant abdominal tenderness; R10.816 Epigastric abdominal tenderness; E66.01 Morbid (severe) obesity due to excess calories; E11.9 Type 2 diabetes mellitus without complications; I10 Essential (primary) hypertension; I25.2 Old myocardial infarction
CPT/HCPCS: 93005; 99285; 96374; 36415; 82553; 82550; 83690; 85025; 80053; 81001; 84484; 71045; 76705; 71275; 93010; S0119; J1170

== ENCOUNTER → 2018-09-06 | Outpatient (CLI) | payer BC ==
--- NOTE | 2018-09-06 10:57 | RADIOLOGY REPORT (SQ) ---
EXAM DESCRIPTION: NM HIDA SCAN WITH CCK COMPLETED DATE/TIME: 09/06/2018 10:23 am REASON FOR STUDY: EPIGASTRIC AND RUQ PAIN R10.13 EPIGASTRIC PAIN COMPARISON: None. RADIONUCLIDE AND DOSE: DOSAGE RADIONUCLIDE: 5.46 millicuries Tc99m Mebrofenin. DOSAGE CCK: 2.2 micrograms. DOSAGE MORPHINE: Not required. The route of agent administration: Intravenous TECHNIQUE: Serial imaging right upper quadrant up to 60 minutes following injection of radionuclide. CCK injected after gallbladder visualized. LIMITATIONS: None. FINDINGS: LIVER: Normal visualization without areas of photopenia. INTRA AND EXTRAHEPATIC BILE DUCTS: Normal accumulation of activity. GALLBLADDER: Normal visualization. Calculated Ejection Fraction of 8%. Below the normal value of 35% or greater. PHYSICAL RESPONSE: Patients presenting complaint was reproduced. OTHER: No other significant finding. IMPRESSION: LOW GALLBLADDER EJECTION FRACTION. EVIDENCE FOR BILIARY DYSKINESIS. NO CYSTIC OR COMMO N DUCT OBSTRUCTION. TECHNICAL DOCUMENTATION: JOB ID: [id number] [employer]- All Rights Reserved Reading location - IP/workstation name: [email or web address]
== END ==
LOC: RAD 08:03
PROVIDERS: ATTEND Nurse Practitioner Family
DX: K82.8 Other specified diseases of gallbladder (principal); R10.13 Epigastric pain; R10.11 Right upper quadrant pain
CPT/HCPCS: 78227; J2805; A9537; Q9969

== ENCOUNTER → 2018-10-19 | Outpatient (CLI) | payer BC ==
--- NOTE | 2018-10-19 10:03 | WOMENS IMAGING REPORT ---
EXAM DESCRIPTION: 3D SCREENING MAMMO BILAT COMPLETED DATE/TIME: 10/19/2018 9:28 am REASON FOR STUDY: SCREENING MAMMO Z12.31 ENCNTR SCREEN MAMMOGRAM FOR MALIGNANT NEOPLASM OF GIBRAN COMPARISON: 2015 TECHNIQUE: Standard craniocaudal and mediolateral oblique views of each breast recorded using digita l acquisition and breast tomosynthesis. LIMITATIONS: None. FINDINGS: No masses, calcifications or architectural distortion. No areas of suspicion. Read with the assistance of CAD. .[facility] - R2 [employer] Version 1.3 .[facility] - R2 Cenova Version 1.3 .[facility] - R2 Cenova Version 2.[address] - R2 Cenova Version 2.4 .[facility] - R2 [employer] Version 9.2 IMPRESSION: NORMAL MAMMOGRAM. BIRADS 1. BREAST DENSITY: b. There are scattered areas of fibroglandular density. BIRAD: 1 NEGATIVE RECOMMENDATION: ROUTINE SCREENING COMMENT: The patient has been notified of the results by letter per SA requirements. Additional no tification policies are in place for contacting patient with suspicious or incomplete findings. Quality ID #[id number]: The [employer] recommends an annual screening mammogram for women aged 40 years or over. This facility utilizes a reminder system to ensure that all patients receive reminder letters, and/or direct phone calls for appointments. This includes reminders for routine scr eening mammograms, diagnostic mammograms, or other Breast Imaging Interventions when appropriate. Th is patient will be placed in the appropriate reminder system. The [employer] (ACR) has developed recommendations for screening MRI of the breast s in certain patient populations, to be used in conjunction with mammography. Breast MRI surveillanc e may be appropriate for women with more than 20% lifetime risk of developing breast cancer as deter mined by genetic testing, significant family history of the disease, or history of mantle radiation f or Hodgkins Disease. ACR Practice Guidelines 2008. DBT Technology DBT is a type of tomographic mammography. With conventional mammography, overlapping breast tissue ma y make lesions difficult to detect, even with good compression. DBT uses an x-ray tube that rotates a round the breast, taking images at different angles. These images are then combined to create thin sl ices of the breast that the radiologist can view as a 3D reconstruction. The Branch[employer] unit can perform full-field digital mammograms (2D imaging); or DBT (3D imaging); or both, in a combination mode that quickly performs both the mammogram and the tomosynthesis scan while the breast is still compressed. PQRS 6045F: Fluoroscopic imaging is not utilized for breast tomosynthesis. TECHNICAL DOCUMENTATION: FINDING NUMBER: (1) ASSESSMENT: (1) JOB ID: [id number] [employer]- All Rights Reserved Reading location - IP/workstation name: [email or web address]
== END ==
LOC: WI 09:02
PROVIDERS: ATTEND Physician Assistant
DX: Z12.31 Encounter for screening mammogram for malignant neoplasm of breast (principal)
CPT/HCPCS: 77063; 77067

== ENCOUNTER 2018-12-05 10:05 | Emergency (ER) | payer BC ==
[2018-12-05] MEDS ORDERED: ASPIRIN 81 MG TABLET, CHEWABLE PO ONE (10:50)
[2018-12-05] MEDS ORDERED: ONDANSETRON 4 MG TAB.RAPDIS SL ONE (10:50)
--- NOTE | 2018-12-05 10:53 | ER Document Report ---
ED Medical Screen (RME) - General Chief Complaint: Chest Pain Stated Complaint: CHEST PAIN Time Seen by Provider: 12/05/18 10:10 Primary Care Provider: ITALIA MONTANA PA [Primary Care Provider] - Follow up as needed TRAVEL OUTSIDE OF THE [place] IN LAST 30 DAYS: No - HPI Patient complains to provider of: chest pain, headache, low back pain Onset: - Tuesday Onset/Duration: Persistent, Worse Quality of pain: Achy Severity: Moderate Pain Level: 4 Associated Symptoms: Abdominal pain, Body/muscle aches, Chest pain, Chills, Cough (productive), Fever, Headache, Nausea Notes: 12/05/18 10:52 Patient is a 43-year-old female presenting to the emergency room today complaining of right-sided chest pain, left-sided headache and low back pain all of which started on Tuesday, she reports a fever at home as well and nonproductive cough and nausea, her primary care provider is Dr. Graham who she reports is out of town currently therefore she was unable to see him regarding the symptoms RAPID MEDICAL EVALUATION DISCLOSURE I have seen this patient as part of a Rapid Medical Evaluation and, if applicable, placed any initially appropriate orders. The patient will be seen and fully evaluated, including a full history and physical exam, by a provider (in Main ED or Fast Track) when a room becomes available. - Related Data Allergies/Adverse Reactions: No Known Allergies Allergy (Verified 12/05/18 10:06) Past Medical History - Past Medical History Cardiac Medical History: Reports: Hx Congestive Heart Failure, Hx Heart Attack, Hx Hypertension Endocrine Medical History: Reports: Hx Diabetes Mellitus Type 2 Renal/ Medical History: Denies: Hx Peritoneal Dialysis Past Surgical History: Reports: Hx Cardiac Catheterization Physical Exam - Vital signs Vitals: Temp Pulse Resp BP Pulse Ox 98.2 F 74 22 H 182/100 H 97 12/05/18 10:16 12/05/18 10:16 12/05/18 10:16 12/05/18 10:16 12/05/18 10:16 Course - Vital Signs Vital signs: Temp Pulse Resp BP Pulse Ox 98.2 F 74 22 H 182/100 H 97 12/05/18 10:16 12/05/18 10:16 12/05/18 10:16 12/05/18 10:16 12/05/18 10:16 Doctor's Discharge - Discharge Referrals: ITALIA MONTANA PA [Primary Care Provider] - Follow up as needed
[2018-12-05 11:24] LABS: ABSOLUTE EOSINOPHILS # (AUTO) 0.3 10^3/uL (0.0-0.6); ABSOLUTE NEUT (AUTO) 7.9 10^3/uL (1.7-8.2); BASOPHILS % (AUTO) 0.1 % (0-2); EOSINOPHILS % (AUTO) 2.7 % (0-6); HEMATOCRIT 38.7 % (36.0-47.0); LYMPHOCYTES % (AUTO) 24.2 % (13-45); MEAN CORPUSCULAR HEMOGLOBIN 28.3 pg (27.0-33.4); MEAN CORPUSCULAR HGB CONC 33.7 g/dL (32.0-36.0); MEAN CORPUSCULAR VOLUME 84 fl (80-97); MONOCYTES % (AUTO) 8.2 % (3-13); PLATELET COUNT 311 10^3/uL (150-450); RED BLOOD COUNT 4.61 10^6/uL (3.72-5.28); RED CELL DISTRIBUTION WIDTH 14.9 % (11.5-14.0); SEGMENTED NEUTROPHILS % (AUTO) 64.8 % (42-78); TOTAL CELLS COUNTED % (AUTO) 100 %; WHITE BLOOD COUNT 12.2 10^3/uL (4.0-10.5)
[2018-12-05 11:33] LABS: APPEARANCE,URINE CLEAR; BILIRUBIN,URINE NEGATIVE (NEGATIVE); COLOR,URINE YELLOW; GLUCOSE, URINE NEGATIVE (NEGATIVE); KETONES,URINE NEGATIVE (NEGATIVE); LEUKOCYTE ESTERASE,URINE NEGATIVE (NEGATIVE); NITRITE,URINE NEGATIVE (NEGATIVE); PROTEIN,URINE NEGATIVE (NEGATIVE); URINE SPECIFIC GRAVITY 1.014; UROBILINOGEN,URINE NEGATIVE mg/dL (<2.0)
[2018-12-05 11:40] LABS: ALANINE AMINOTRANSFERASE 31 U/L (9-52); ALBUMIN 3.8 g/dL (3.5-5.0); ALKALINE PHOSPHATASE 61 U/L (38-126); ANION GAP 8 (5-19); ASPARTATE AMINO TRANSFERASE 27 U/L (14-36); BILIRUBIN,DIRECT 0.1 mg/dL (0.0-0.4); BILIRUBIN,TOTAL 0.4 mg/dL (0.2-1.3); BLOOD UREA NITROGEN 15 mg/dL (7-20); CALCIUM 9.2 mg/dL (8.4-10.2); CARBON DIOXIDE 29 mmol/L (22-30); CHLORIDE 103 mmol/L (98-107); GLUCOSE 82 mg/dL (75-110); POTASSIUM 3.5 mmol/L (3.6-5.0); SODIUM 140.1 mmol/L (137-145)
--- NOTE | 2018-12-05 11:49 | RADIOLOGY REPORT (SQ) ---
EXAM DESCRIPTION: CHEST 2 VIEWS COMPLETED DATE/TIME: 12/05/2018 11:36 am REASON FOR STUDY: cp COMPARISON: None. EXAM PARAMETERS: NUMBER OF VIEWS: two views TECHNIQUE: Digital Frontal and Lateral radiographic views of the chest acquired. RADIATION DOSE: NA LIMITATIONS: none FINDINGS: LUNGS AND PLEURA: No opacities, masses or pneumothorax. No pleural effusion. MEDIASTINUM AND HILAR STRUCTURES: No masses or contour abnormalities. HEART AND VASCULAR STRUCTURES: Enlarged cardiac silhouette. Mild central vascular prominence. No ev idence of overt edema. BONES: No acute findings. HARDWARE: None in the chest. OTHER: No other significant finding. IMPRESSION: Enlarged cardiac silhouette without overt edema or evidence of other acute cardiopulmona ry process. TECHNICAL DOCUMENTATION: JOB ID: [id number] [employer]- All Rights Reserved Reading location - IP/workstation name: [email or web address]
[2018-12-05] MEDS ORDERED: MORPHINE SULFATE 10 MG/ML INJ IV ONE (11:59)
[2018-12-05] MEDS ORDERED: ONDANSETRON HCL INJ/PF 4 MG/2 ML SDV IV ONE (11:59)
--- NOTE | 2018-12-05 12:56 | ER Document Report ---
ED General - General Chief Complaint: Chest Pain Stated Complaint: CHEST PAIN Time Seen by Provider: 12/05/18 10:10 Primary Care Provider: ITALIA MONTANA PA [Primary Care Provider] - Follow up as needed Notes: 43-year-old female presenting to the emergency room today complaining of right- sided chest pain, left-sided headache and low back pain all of which started on Tuesday, she reports a fever at home as well and nonproductive cough and nausea, her primary care provider is Dr. Graham who she reports is out of town currently therefore she was unable to see him regarding the symptoms. Patient has been sick and coughing. She states she is been coughing as her her chest her head her low back. She felt very achy. He describes his pain as moderate to severe. She has had cough little bit of a sore throat. A lot of congestion. Denies calf pain or leg swelling. Describes discomfort as a sharp and aching. Rates it as severe TRAVEL OUTSIDE OF THE [place] IN LAST 30 DAYS: No - Related Data Allergies/Adverse Reactions: No Known Allergies Allergy (Verified 12/05/18 10:06) Past Medical History - Social History Smoking Status: Never Smoker Frequency of alcohol use: None Drug Abuse: None Family History: Reviewed & Not Pertinent Patient has suicidal ideation: No Patient has homicidal ideation: No - Past Medical History Cardiac Medical History: Reports: Hx Congestive Heart Failure, Hx Heart Attack, Hx Hypertension Endocrine Medical History: Reports: Hx Diabetes Mellitus Type 2 Renal/ Medical History: Denies: Hx Peritoneal Dialysis Past Surgical History: Reports: Hx Cardiac Catheterization Review of Systems - Review of Systems Constitutional: Chills. denies: Fever EENT: Nose congestion, Nose discharge, Throat pain Cardiovascular: Chest pain. denies: Dyspnea Respiratory: Cough, Hurts to breathe. denies: Short of breath Genitourinary: denies: Hematuria Musculoskeletal: Back pain Neurological/Psychological: Headaches -: Yes All other systems reviewed and negative Physical Exam - Vital signs Vitals: Temp Pulse Resp BP Pulse Ox 98.2 F 74 22 H 182/100 H 97 12/05/18 10:16 12/05/18 10:16 12/05/18 10:16 12/05/18 10:16 12/05/18 10:16 - Notes Notes: GENERAL_APPEARANCE: well_nourished-orbitally obese, alert, cooperative VITALS: reviewed, see vital signs table. HEAD: no_swelling\tenderness on the head. EYES: PERRL, EOMI, conjunctiva_clear. NOSE: no_nasal_discharge. MOUTH: (-)decreased moisture. THROAT: no_tonsilar_inflammation, no_airway_obstruction. no_lymphadenopathy NECK: supple, no_neck_tenderness, (-)thyromegaly. BACK: Low back parasternal L2 through S1_back_tenderness. CHEST_WALL: Diffuse parasternal_chest_tenderness. No crepitus or subcutaneous emphysema LUNGS: no_wheezing, no_rales, no_rhonchi, (-)accessory muscle use, good air exchange bilateral. HEART: normal_rate, normal_rhythm, normal_S1, normal_S2, (-)S3, (-)S4, no_murmur, no_rub. ABDOMEN: normal_BS, soft, no_abd_tenderness, (-)guarding, (-)rebound, no_orga nomegaly, no_abd_masses. EXTREMITIES: good pulses in all_extremities, no_swelling\tenderness in the extremities, no_edema. SKIN: warm, dry, good_color, no_rash. MENTAL_STATUS: speech_clear, oriented_X_3, normal_affect, responds_appropriately to questions. NEURO: Neg Motor or Sensory Deficits on exam, CN 2-12 intact, DTR 2+ symmetric x 4, No cerbellar signs Course - Re-evaluation Re-evalutation: 12/05/18 12:55 43-year-old female presents with cough congestion a lot of coughing and she complains of headaches and backache and some chest discomfort. Patient is audibly coughing a lot. States the cough is what is causing her the pain pulling the muscles. Getting EKG and some imaging. Were monitoring her closely. My suspicion is low for ACS or PE. 12/05/18 13:31 Patient is done well for his here. EKG and enzymes are negative. CTA is negative for PE or dissection. With the patient's coughing think this is all musculoskeletal we will place her on a cough medicine and placed on a course of antibiotics. We will have her follow-up with her doctor. If worse or not improving return to the ER - Vital Signs Vital signs: Temp Pulse Resp BP Pulse Ox 98.2 F 74 22 H 182/100 H 97 12/05/18 10:16 12/05/18 10:16 12/05/18 10:16 12/05/18 10:16 12/05/18 10:16 - Laboratory Result Diagrams: 12/05/18 11:03 12/05/18 11:03 Laboratory results interpreted by me: 12/05/18 12/05/18 11:03 11:03 WBC 12.2 H RDW 14.9 H Potassium 3.5 L Est GFR (Non-Af Amer) 56 L - Diagnostic Test Radiology reviewed: Reports reviewed Radiology results interpreted by me: 12/05/18 13:31 Chest X-Ray 12/05/18 10:50 IMPRESSION: Enlarged cardiac silhouette without overt edema or evidence of other acute cardiopulmonary process. Chest/Abdomen CTA 12/05/18 12:00 IMPRESSION: No evidence of pulmonary embolus or other acute intrathoracic process. - EKG Interpretation by Dc EKG shows normal: Sinus rhythm Rate: Normal Rhythm: NSR, Other - First-degree AV block Heart block present: 1st Degree Discharge - Discharge Clinical Impression: Cough Acute bronchitis Qualifiers: Bronchitis organism: unspecified organism Qualified Code(s): J20.9 - Acute bronchitis, unspecified Disposition: HOME, SELF-CARE Instructions: Chest Wall Pain ([facility]), Bronchitis ([facility]) Prescriptions: Doxycycline Hyclate 100 mg PO BID #14 capsule Promethazine HCl/Codeine [Prometh-Codein 6.25-10 mg/5 ml] 5 ml PO Q6 PRN #120 syrup PRN Reason: Referrals: ITALIA MONTANA PA [Primary Care Provider] - Follow up as needed
--- NOTE | 2018-12-05 13:15 | RADIOLOGY REPORT (SQ) ---
EXAM DESCRIPTION: CTA CHEST COMPLETED DATE/TIME: 12/05/2018 12:42 pm REASON FOR STUDY: cp COMPARISON: 08/29/2018 TECHNIQUE: CT scan of the chest performed using helical scanning technique with dynamic intravenous contrast injection. Images reviewed with lung, soft tissue and bone windows. Reconstructed coronal and sagittal MPR images reviewed. Additional 3 dimensional post-processing performed to develop Maximal Intensity Projection images (NE P). All images stored on PACS. All CT scanners at this facility use dose modulation, iterative reconstruction, and/or weight based d osing when appropriate to reduce radiation dose to as low as reasonably achievable (ALARA). [facility]: Dose Right [facility]: CareDose [facility]: Dose Right [facility]: Teradose 4D [facility]: GENWI CONTRAST TYPE AND DOSE: contrast/concentration: Isovue 350.00 mg/ml; Total Contrast Delivered: 89.0 ml; Total Saline Delivered: 105.0 ml 74 cc Omnipaque 350 Contrast bolus optimized for the pulmonary arteries. Not diagnostic for the aorta. RENAL FUNCTION: None required. The patient is less than 50 years old. RADIATION DOSE: CT Rad equipment meets quality standard of care and radiation dose reduction techniq ues were employed. CTDIvol: 8.3 - 41.3 mGy. DLP: 1386 mGy-cm. . LIMITATIONS: None. FINDINGS: LUNGS AND PLEURA: Dependent hypoventilatory change with minimal linear atelectasis. No de nse consolidation. No significant pleural effusion. No pneumothorax. No discrete masses. AORTA AND GREAT VESSELS: No aneurysm. Contrast bolus not optimized for the aorta. HEART: Trace pericardial effusion. No significant coronary atherosclerosis. No significant coronary artery calcifications. PULMONARY ARTERIES: No central or lobar pulmonary embolus. Evaluation of distal segmental branches l imited secondary to body habitus. Right to left ventricular ratio is normal. HILAR AND MEDIASTINAL STRUCTURES: Shotty mediastinal nodes, largest para-aortic node measures 7 mm in short axis, stable. No discrete adenopathy. HARDWARE: None in the chest. UPPER ABDOMEN: No significant findings. Limited exam. THYROID AND OTHER SOFT TISSUES: No masses. No adenopathy. BONES: No acute or significant finding. 3D MIPS: Confirm above findings. OTHER: No other significant finding. IMPRESSION: No evidence of pulmonary embolus or other acute intrathoracic process. COMMENT: Quality ID # [id number]: Final reports with documentation of one or more dose reduction techniques (e.g., Automated exposure control, adjustment of the mA and/or kV according to patient size, use of iterative reconstruction technique) TECHNICAL DOCUMENTATION: JOB ID: [id number] [employer]- All Rights Reserved Reading location - IP/workstation name: [email or web address]
[2018-12-05 13:58] VITALS: BP 158/112
--- NOTE | 2018-12-05 15:43 | EKG REPORT ---
SEVERITY:- ABNORMAL ECG - SINUS RHYTHM FIRST DEGREE AV BLOCK POOR R WAVE PROGRESSION ANTERIOR LEADS, UNCHANGED : Confirmed by: Tapan Dunbar MD 05-Dec-2018 15:43:13
== END 2018-12-05 14:02 | disposition home or self-care (01) ==
LOC: ER 10:05
DX: J20.9 Acute bronchitis, unspecified (principal); R05 Cough; R07.9 Chest pain, unspecified; R51 Headache; M54.5 Low back pain; R50.9 Fever, unspecified; R11.0 Nausea; R09.81 Nasal congestion; R09.89 Other specified symptoms and signs involving the circulatory and respiratory systems; M54.9 Dorsalgia, unspecified; I50.9 Heart failure, unspecified; I25.2 Old myocardial infarction; I11.0 Hypertensive heart disease with heart failure; E11.9 Type 2 diabetes mellitus without complications
CPT/HCPCS: 93005; 99285; 96374; 36415; 87040; 87086; 83690; 85025; 80053; 81001; 84484; 71046; 71275; 93010; S0119; J2270

== ENCOUNTER 2019-11-12 15:57 | Emergency (ER) | payer BC ==
[2019-11-12] MEDS ORDERED: DIAZEPAM 5 MG TABLET PO ONE (16:46)
--- NOTE | 2019-11-12 16:50 | ER Document Report ---
ED Medical Screen (RME) - General Chief Complaint: Leg Pain Stated Complaint: LEFT LEG PAIN Time Seen by Provider: 11/12/19 16:41 Primary Care Provider: ITALIA MONTANA PA [Primary Care Provider] - Follow up as needed Notes: Patient is a 44-year-old female with a history of high blood pressure presents emergency department with a chief complaint of left hip and left leg pain. Patient reports she woke up this morning felt excruciating pain to the left hip that radiated down to her leg. Patient reports with certain position she does get numbness and tingling down the leg. Patient denies fall or injury. Patient reports she does have a history of sciatica but that this feels completely different. Patient reports she is unable to bear weight on this leg. TRAVEL OUTSIDE OF THE [place] IN LAST 30 DAYS: No - Related Data Allergies/Adverse Reactions: No Known Allergies Allergy (Verified 12/05/18 10:06) Past Medical History - Social History Frequency of alcohol use: None Drug Abuse: None - Past Medical History Cardiac Medical History: Reports: Hx Congestive Heart Failure, Hx Heart Attack, Hx Hypertension Endocrine Medical History: Reports: Hx Diabetes Mellitus Type 2 Renal/ Medical History: Denies: Hx Peritoneal Dialysis Past Surgical History: Reports: Hx Cardiac Catheterization Course - Re-evaluation Re-evalutation: 11/12/19 16:49 Patient had tenderness throughout the whole left lower back, left hip and left upper thigh. Patient will require a thorough exam in a gown. Will initiate muscle relaxer as well as anti-inflammatory. Patient unable to bear weight at this time. I have greeted and performed a rapid initial assessment of this patient. A c omprehensive ED assessment and evaluation of the patient, analysis of test results and completion of the medical decision making process will be conducted by additional ED providers. Doctor's Discharge - Discharge Referrals: ITALIA MONTANA PA [Primary Care Provider] - Follow up as needed
[2019-11-12] MEDS: KETOROLAC TROMETHAMINE INJ/PF 30 MG/1 ML SDV IM ONE ×2 (17:24→17:39)
[2019-11-12] MEDS ORDERED: KETOROLAC TROMETHAMINE 60 MG/2 ML SDV IM ONE (17:32)
[2019-11-12] MEDS ORDERED: DEXAMETHASONE SOD PHOS INJ 10 MG/1 ML VIAL IM ONE (17:34)
--- NOTE | 2019-11-12 17:40 | ER Document Report ---
HPI - HPI Time Seen by Provider: 11/12/19 16:41 Pain Level: 4 Notes: Patient is a 44-year-old female with a history of chronic low back pain who presents complaining of acute exacerbation of her left lower back pain that radiates into her left hip and left lateral leg that began this morning. Patient states that she rolled over in bed and felt something pull in her lower back causing the pain. Patient states that the pain does ease off with muscle relaxers, but then comes back. She is able to ambulate, but has been limping. She is able to eat and drink without difficulty. She is urinating normally and having normal bowel movements. Denies drug allergies. Denies any headache, fever, URI, sore throat, chest pain, palpitations, syncope, cough, shortness of breath, wheeze, dyspnea, abdominal pain, nausea/vomiting/diarrhea, urinary retention, dysuria, hematuria, loss of control of bowel or bladder, numbness/tingling, saddle anesthesia, muscle paralysis/weakness, or rash. - ROS Systems Reviewed and Negative: Yes All other systems reviewed and negative - REPRODUCTIVE Reproductive: DENIES: : - MUSCULOSKELETAL Musculoskeletal: REPORTS: Extremity pain Past Medical History - Social History Smoking Status: Unknown if Ever Smoked Frequency of alcohol use: None Drug Abuse: None Family History: Reviewed & Not Pertinent Patient has suicidal ideation: No Patient has homicidal ideation: No - Past Medical History Cardiac Medical History: Reports: Hx Congestive Heart Failure, Hx Heart Attack, Hx Hypertension Endocrine Medical History: Reports: Hx Diabetes Mellitus Type 2 Renal/ Medical History: Denies: Hx Peritoneal Dialysis Past Surgical History: Reports: Hx Cardiac Catheterization Vertical Provider Document - CONSTITUTIONAL Agree With Documented VS: Yes Notes: PHYSICAL EXAMINATION: GENERAL: Well-appearing, well-nourished and in no acute distress. LUNGS: Breath sounds clear to auscultation bilaterally and equal. No wheezes rales or rhonchi. HEART: Regular rate and rhythm without murmurs, rubs, gallops. ABDOMEN: Soft, nontender, nondistended abdomen. No guarding, no rebound. Normal bowel sounds present. No CVA tenderness bilaterally. No pulsatile mass Musculoskeletal: LE's b/l: FROM to passive/active. Strength 5+/5. No deficits noted. No bony tenderness of extremities. Back: FROM to passive/active. Strength 5+/5. No vertebral point tenderness, stepoffs, or deformities. No other bony tenderness, erythema, swelling, or ecchymosis. SLR negative b/l. + reproducible tenderness to the L-paraspinal mm left side. Mild spasming. + left SI jt tenderness. No foot drop Extremities: No cyanosis, clubbing, or edema b/l. Peripheral pulses 2+. Capillary refill less than 2 seconds. NEUROLOGICAL: Normal speech, limping gait. Normal sensory, motor exams. Reflexes 2+ b/l. PSYCH: Normal mood, normal affect. SKIN: Warm, Dry, normal turgor, no rashes or lesions noted. - INFECTION CONTROL TRAVEL OUTSIDE OF THE [place] IN LAST 30 DAYS: No Course - Re-evaluation Re-evalutation: 11/12/19 17:38 Patient is an afebrile, well-hydrated, 44-year-old female who presents to the ED with acute on chronic low back pain. Vitals are acceptable. PE is otherwise unremarkable for any focal neurological deficits. Patient was given Toradol/decadron. She has no significant tachycardia, tachypnea, or hypoxia. She is nontoxic-appearing and is tolerating p.o. without difficulties. There are no signs of infection. No other red flag symptoms noted. No other labs or imaging warranted at this time based on H&P. Low suspicion for any meningitis, fracture, expanding/ruptured AAA, cauda equina syndrome, epidural mass lesion/abscess, herniated disc causing severe spinal stenosis, or other systemic infection at this time. Patient is aware that this condition can change from initial presentation and that she needs monitor symptoms closely for any acute changes. I will send her home with a prescription for motrin. Conservative measures otherwise for symptoms. Recheck with your PCM in 3-5 days. Consider consult with orthopedic/physical therapy. Return to the ED with any worsening/concerning symptoms otherwise as reviewed discharge. Patient is in agreement. Discharge - Discharge Clinical Impression: Acute exacerbation of chronic low back pain Condition: Stable Disposition: HOME, SELF-CARE Additional Instructions: Rest, Ice Tylenol/ibuprofen as needed Light stretches daily Strength exercises as able Moist heat and massage may help F/u with your PCP in 3-5 days for a recheck Consider consult(s) with Orthopedics/physical therapy for ongoing/worsening symptoms Return to the ED with any worsening symptoms and/or development of fever, h eadache, chest pain, palpitations, syncope, shortness of breath, trouble breathing, abdominal pain, n/v/d, blood in stool/urine, loss of control of bowel/bladder, urinary retention, muscle weakness/paralysis, saddle anesthesia, numbness/tingling, or other worsening symptoms that are concerning to you. Prescriptions: Ibuprofen [Motrin 800 mg Tablet] 800 mg PO Q8H PRN #15 tab PRN Reason: Forms: Elevated Blood Pressure Referrals: ITALIA MONTANA PA [Primary Care Provider] - Follow up as needed [facility] [Provider Group] - Follow up as needed
[2019-11-12 18:15] VITALS: BP 153/95
== END 2019-11-12 18:15 | disposition home or self-care (01) ==
LOC: ER 15:57
DX: G89.29 Other chronic pain (principal); M54.5 Low back pain; M25.552 Pain in left hip; M79.605 Pain in left leg; I10 Essential (primary) hypertension; E11.9 Type 2 diabetes mellitus without complications
CPT/HCPCS: 99283; 96372; J1885; J1100

== ENCOUNTER → 2020-07-01 | Outpatient (CLI) | payer BC ==
[2020-07-01 13:29] LABS: ABSOLUTE EOSINOPHILS # (AUTO) 0.4 10^3/uL (0.0-0.6); ABSOLUTE LYMPHOCYTES (AUTO) 2.4 10^3/uL (0.5-4.7); ABSOLUTE MONOCYTES (AUTO) 0.5 10^3/uL (0.1-1.4); BASOPHILS % (AUTO) 0.6 % (0-2); HEMATOCRIT 39.5 % (36.0-47.0); HEMOGLOBIN 13.1 g/dL (12.0-15.5); LYMPHOCYTES % (AUTO) 32.6 % (13-45); MEAN CORPUSCULAR HEMOGLOBIN 26.8 pg (27.0-33.4); MEAN CORPUSCULAR HGB CONC 33.1 g/dL (32.0-36.0); MEAN CORPUSCULAR VOLUME 81 fl (80-97); PLATELET COUNT 399 10^3/uL (150-450); RED BLOOD COUNT 4.89 10^6/uL (3.72-5.28); RED CELL DISTRIBUTION WIDTH 15.8 % (11.5-14.0); SEGMENTED NEUTROPHILS % (AUTO) 54.8 % (42-78); TOTAL CELLS COUNTED % (AUTO) 100 %; WHITE BLOOD COUNT 7.4 10^3/uL (4.0-10.5)
== END ==
LOC: OD 12:32
PROVIDERS: ATTEND Specialist
DX: N92.0 Excessive and frequent menstruation with regular cycle (principal)
CPT/HCPCS: 36415; 85025